=== PATIENT | female | born 1960 ===

== ENCOUNTER 2017-08-13 15:11 | Outpatient (CLI) | payer MEDICARE, MEDICAID | END 2017-08-13 15:12 | disposition home or self-care (01) | LOC: BICMRI 15:11 | PROVIDERS: ATTEND Specialist | DX: M48.062 Spinal stenosis, lumbar region with neurogenic claudication (principal); M47.897 Other spondylosis, lumbosacral region; M47.896 Other spondylosis, lumbar region; S32.010A Wedge compression fracture of first lumbar vertebra, initial encounter for closed fracture | CPT/HCPCS: 72148 ==